=== PATIENT | female | born 1945 | race Caucasian/White ===

== ENCOUNTER 2016-08-05 07:02 | Day surgery (SDC) | payer MEDICARE, OTHER ==
--- NOTE | ~2016-08-05 | EGD ---
EGD REPORT [facility] [address] [address] NAME: ANAND HERNANDEZ : [birth year] STATUS : REG [facility] PAT#: [id number] AGE: 71 ADM/REG DATE : 08/05/16 MR#: [id number] REPORT SERV DATE: 08/05/16 DICTATED BY: OSEI VARGAS DATE: 08/05/16 REPORT STATUS : Draft [facility] DATE: 08/05/16 [facility] Center Patient Name: Anand Hernandez Date of : 1945 Attending MD: JAMAL VARGAS MD Procedure Date No Time: 08/05/2016 Procedure: Upper GI endoscopy Indications: Gastro-esophageal reflux disease Referring MD: ANN KUMAR Medicines: See the Anesthesia note for documentation of the administered medications Complications: No immediate complications. Estimated blood loss: Minimal. Procedure: Pre-Anesthesia Assessment: - ASA Grade Assessment: III - A patient with severe systemic disease. - Prior to the procedure, a History and Physical was performed, and patient medications and allergies were reviewed. The patient's tolerance of previous anesthesia was also reviewed. The risks and benefits of the procedure and the sedation options and risks were discussed with the patient. All questions were answered, and informed consent was obtained. Prior Anticoagulants: The patient has taken no previous anticoagulant or antiplatelet agents. After reviewing the risks and benefits, the patient was deemed in satisfactory condition to undergo the procedure. After obtaining informed consent, the endoscope was passed under direct vision. Throughout the procedure, the patient's blood pressure, pulse, and oxygen saturations were monitored continuously. The GIF [id number] was introduced through the mouth, and advanced to the second part of duodenum. The upper GI endoscopy was accomplished without difficulty. The patient tolerated the procedure well. Findings: The examined duodenum was normal. The entire examined stomach was normal. The cardia and gastric fundus were normal on retroflexion. Diffuse mild erythema was found at the gastroesophageal junction. Biopsies were taken with a cold forceps for histology. No other significant abnormalities were identified in a careful examination of the esophagus. EGD REPORT [address] [address] NAME: ANAND HERNANDEZ : [birth year] STATUS : REG [facility]#: [id number] AGE: 71 ADM/REG DATE : 08/05/16 MR#: [id number] REPORT SERV DATE: 08/05/16 DICTATED BY: OSEI VARGAS DATE: 08/05/16 REPORT STATUS : Draft TRANSCRIBED BY: [email or web address] DATE: 08/05/16 Impression: - Normal examined duodenum. - Normal stomach. - Erythema at the gastroesophageal junction. Biopsied. Recommendation: - Patient has a contact number available for emergencies. The signs and symptoms of potential delayed complications were discussed with the patient. Return to normal activities tomorrow. Written discharge instructions were provided to the patient. - Regular diet. - Discharge patient to home. - Continue present medications. - Await pathology results. Procedure Code(s): --- Professional --- 03163, Esophagogastroduodenoscopy, flexible, transoral; with biopsy, single or multiple Diagnosis Code(s): --- Professional --- K22.9, Disease of esophagus, unspecified K21.9, Gastro-esophageal reflux disease without esophagitis CPT copyright 2013 [employer]. All rights reserved. The codes documented in this report are preliminary and upon full time paramedic review may be revised to meet current compliance requirements. JAMAL VARGAS MD 08/05/2016 9:35 AM This report has been signed electronically. Number of Addenda: 0 Note Initiated On: 08/05/2016 9:13 AM Scope Withdrawal Time 0 hours 0 minutes 0 seconds [address] [id number]
[~2016-08-05 07:02] MED LIST: ALLEGRA-D24 HOUR PO; C25 PO; CALTRA600D PO; CENTRUM PO; COMBIVENT RESPIM4 GM INH; CYANO1000T PO; DCN100 PO; DYRENIUM50 MG PO; ELESTAT0.05 % OPH; FLOMAX4 PO; IRON PO; IRON325 MG PO; LIPITOR20 PO; LOP50 PO; MAX25 PO; METOPROLOL SUCCINATE PO; MIRAPEX250 PO; MOBIC15 MG PO; MOBIC7.5 PO; MULTIVITAMI1 PO; NEUR100 PO; NEXIUM40 PO; NOR10 PO; NORCO1 TA1 PO; NORCO1 TA2 PO; NORCO1 TAB PO; PCET PO; PERCOCET1 TA2 PO; PRAVAC PO; PRIN10 PO; PROAIR HFA INH; PROTONIX PO; SOMATAB PO; SYMBICORT 160/41 INH INH; SYMBICORT 80/4.1 INH INH; T PO; TOPXL25 PO; VICODINTAB PO; VITAMIN B-121000 MC1 SL; VITAMIN D1000 UNI1 PO; VITAMIN D31000 UNIT PO; VITAMINS; ZOFRAN4 PO; ZOLOFT25 MG PO; ZYRTEC ALLGY10 MG PO; [UNRECOGNIZED DRUG - OTHER]; [UNRECOGNIZED DRUG - REMARK] PO
== END 2016-08-05 23:59 | disposition home or self-care (01) ==
LOC: DMU 07:02
PROVIDERS: Internal Medicine Gastroenterology
PROC: 0DB48ZX Excision of Esophagogastric Junction, Via Natural or Artificial Opening Endoscopic, Diagnostic (ICD-10-PCS; principal; 2016-08-05 08:30)
DX: K21.9 Gastro-esophageal reflux disease without esophagitis (principal); K22.9 Disease of esophagus, unspecified; M19.90 Unspecified osteoarthritis, unspecified site; G47.33 Obstructive sleep apnea (adult) (pediatric); J45.909 Unspecified asthma, uncomplicated; E11.9 Type 2 diabetes mellitus without complications; I10 Essential (primary) hypertension; Z88.0 Allergy status to penicillin; Z88.2 Allergy status to sulfonamides; Z88.8 Allergy status to other drugs, medicaments and biological substances; Z99.81 Dependence on supplemental oxygen; Z90.710 Acquired absence of both cervix and uterus; Z98.41 Cataract extraction status, right eye; Z98.42 Cataract extraction status, left eye; Z98.890 Other specified postprocedural states
CPT/HCPCS: 88305